=== PATIENT | male | born 1985 | race Two or more races ===

== ENCOUNTER 2025-06-28 10:20 | Emergency (ER) | payer OTHER, SELFPAY ==
[~2025-06-28] VITALS: Ht 185.4 cm; Wt 93.3 kg
[2025-06-28 10:21] VITALS: BP 128/79; PULSE 66; RESP 22; TEMP 97.8; O2SAT 96
== END 2025-06-28 11:37 | disposition left against medical advice (07) ==
LOC: ER 10:20
DX: K92.2 Gastrointestinal hemorrhage, unspecified (principal); Z53.21 Procedure and treatment not carried out due to patient leaving prior to being seen by health care provider